=== PATIENT | female | born 1985 | race Two or more races ===

== ENCOUNTER 2016-04-19 22:28 | Emergency (ER) | payer OTHER ==
[2016-04-19 22:35] VITALS: BP 122/85; PULSE 98; TEMP 97.9; BMI 30.2
[2016-04-19] MEDS ORDERED: SODIUM CHLORIDE 1,000 ML IV ONE (22:40)
[2016-04-19] MEDS ORDERED: morphine CARPU-JECT 2 MG/1 ML DISP.SYRIN IVPUSH ONE (22:40)
[2016-04-19] MEDS ORDERED: morphine CARPU-JECT 10 MG/1 ML DISP.SYRIN ONE (22:46)
[2016-04-19] MEDS ORDERED: HYOSCYAMINE SULFATE 0.125 MG *ODT PO ONE (22:58)
--- NOTE | 2016-04-19 22:58 | PDOC ---
[id number] 4d ABD PAIN Time Seen by Provider: 04/19/16 22:37 History Source: Patient Exam Limitations: No Limitations - History of Present Illness Initial Comments: 04/19/16 22:58 This is a 30-year-old female who comes in complaining of acute onset of crampy lower abdominal pain post eating a chipotle's. Patient said post onset of the pain she had diarrhea and multiple episodes of vomiting and comes in complaining of severe lower crampy abdominal pain. Patient denies any fevers or chills. Patient denies history of similar pain in the past. Patient said prior to onset of the pain that she also developed a sensation of swelling in her affect. Patient said it wasn't her throat sensation closing but felt like the glands in her neck or enlarged. Patient denied any chest pain, shortness of breath or wheezing. Patient has a history significant for type 2 diabetes and obesity. PAST MEDICAL HISTORY: As per history of present illness PAST SURGICAL HISTORY: no significant history FAMILY HISTORY: no pertinant history SOCIAL HISTORY: Pt lives with family and is employed. MEDICATIONS: reviewed ALLERGIES: As per nursing notes Review of Systems General: No fevers or chills, no weakness, no weight loss HEENT: No change in vision. No sore throat,. No ear pain CardioVascular: No chest pain or shortness of breath Respiratory:No cough, or wheezing. Gastrointestinal: + nausea, + vomitting, +diarrhea no constipation, No rectal bleeding Genitourinary: No dysuria, hematuria, or frequency Musculoskeletal: No joint or muscle pain or swelling Neurologic: No headache, vertigo, dizziness or loss of consciousness Psychiatric: nor depression Skin: No rashes or easy bruising Endocrine: no increased thirst or abnormal weight change Allergic: no skin or latex allergy All other systems reviewed and normal Exam: General: Well-nourished well-developed individual, no acute distress HEENT: Throat: Normal, tonsils normal, no erythema or exudate Neck: Supple, no meningeal signs, no lymphadenopathy Eyes::Pupils equal reactive and round, extraocular motion intact Chest: Nontender to palpation Cardiac: S1-S2 normal, regular rate and rhythm, no murmurs rubs or gallops Respiratory: Lungs clear to auscultation bilateral Abdomen: Soft, nondistended, normal bowel sounds, mildly tender to palpation lower abdomen with increased tenderness suprapubic no guarding or rebound Pelvic: There is a small amount of dark brownish discharge. There is no cervical motion tenderness or adnexal tenderness there is no palpable adnexal masses. Extremities: Warm, dry, no cyanosis, clubbing, or edema Skin: No rashes Neuro: Alert and oriented x3, nonfocal exam, grossly intact, normal gait Psych: Normal mood and affect 12MN Reexamination: Patient's abdominal pain is completely resolved. Patient is tolerating by mouth's and feels much better and is now well hydrated. On reexam of the abdomen the abdomen is soft there is normal bowel sounds and there is no tenderness on palpation of the lower abdomen. Patient's does have a slight elevated white count but there is no left shift. Discussed with patient the importance of following up with her OB doctor and getting a pelvic exam. Patient given vomiting discharge instructions and a prescription for Zofran was sent to her pharmacy. 04/20/16 00:01 Past History - Past Medical History Allergies/Adverse Reactions: Allergies Allergy/AdvReac Type Severity Reaction Status Date / Time No Known Drug Allergies Allergy Verified 04/19/16 22:29 Home Medications: Ambulatory Orders Metformin HCl [Glucophage] 1,000 mg PO DAILY 04/19/16 Ondansetron [Zofran Odt -] 4 mg SL TID #12 od.tablet 04/19/16 Other medical history: HORMONE IMBALANCE - Psycho/Social/Smoking Cessation Hx Anxiety: No Suicidal Ideation: No Smoking History: Never smoked *Physical Exam - Vital Signs Last Vital Signs Temp Pulse Resp BP Pulse Ox 97.9 F 98 H 20 122/85 100 04/19/16 22:30 04/19/16 22:30 04/19/16 22:30 04/19/16 22:30 04/19/16 22:30 ED Treatment Course - LABORATORY CBC & Chemistry Diagram: 04/19/16 22:53 04/19/16 22:53 *DC/Admit/Observation/Transfer Diagnosis at time of Disposition: Vomiting Qualifiers: Vomiting type: unspecified Vomiting Intractability: non-intractable Nausea presence: with nausea Qualified Code(s): R11.2 - Nausea with vomiting, unspecified Abdominal pain Qualifiers: Abdominal location: unspecified location Qualified Code(s): R10.9 - Unspecified abdominal pain - Discharge Dispostion Disposition: HOME Condition at time of disposition: Stable - Prescriptions Prescriptions: Ondansetron [Zofran Odt -] 4 mg SL TID #12 od.tablet - Referrals Referrals: Ninfa Redman [Primary Care Provider] -
[2016-04-19 23:02] LABS: BASOPHIL 0.5 % (0-2.0); EOSINOPHIL 1.9 % (0-4.5); MCHC 32.9 g/dl (32.0-36.0); MEAN CELL VOLUME 75.9 fl (80-96); MEAN PLT VOLUME 7.6 fl (7.5-11.1); NEUTROPHILS 51.9 % (42.8-82.8); PLATELET COUNT 441 K/MM3 (134-434); RDW 13.5 % (11.6-15.6); WHITE BLOOD COUNT 12.9 K/mm3 (4.0-10.0)
[2016-04-19] MEDS ORDERED: HYOSCYAMINE SULFATE 0.125 MG *ODT ONE (23:02)
[2016-04-19 23:19] LABS: ALBUMIN 4.1 g/dl (3.5-5.0); ALK PHOS 42 U/L (32-92); ANION GAP 8 (8-16); BILIRUBIN,TOTAL 0.2 mg/dl (0.2-1.0); CALCIUM 9.1 mg/dl (8.4-10.2); CO2 26 mmol/L (22-28); CREATININE 0.5 mg/dl (0.6-1.3); GLUCOSE,RANDOM 123 mg/dl (74-106); SGOT/AST 19 U/L (10-42); SGPT/ALT 25 U/L (10-40); TOT PROT 7.1 g/dl (6.4-8.3)
[2016-04-19 23:47] LABS: PH,URINE 5.5 (4.5-8); URINE APPEARANCE Clear; URINE BILIRUBIN Negative (NEGATIVE); URINE GLUCOSE (UA) Negative (NEGATIVE); URINE KETONE Negative (NEGATIVE); URINE LEUK ESTERASE Negative (NEGATIVE); URINE NITRITE Negative (NEGATIVE); URINE PROTEIN Negative (NEGATIVE); URINE UROBILINOGEN 0.2 E.U/dl (0.2-1.0)
[2016-04-19 23:50] LABS: URINE BLOOD 2+ (NEGATIVE); URINE COLOR YELLOW
[2016-04-19 23:53] LABS: URINE BACTERIA FEW /hpf (NEGATIVE); URINE RBC 15-20 /hpf (0-3); URINE WBC 0-2 (3-5)
== END 2016-04-20 00:11 | disposition home or self-care (01) ==
LOC: FER 22:28
PROC: 3E033NZ Introduction of Analgesics, Hypnotics, Sedatives into Peripheral Vein, Percutaneous Approach (ICD-10-PCS; principal; 2016-04-19)
PROC: 3E0337Z Introduction of Electrolytic and Water Balance Substance into Peripheral Vein, Percutaneous Approach (ICD-10-PCS; 2016-04-19)
DX: R11.2 Nausea with vomiting, unspecified (principal); R10.9 Unspecified abdominal pain
CPT/HCPCS: 36415; 80053; 81003; 81015; 83690; 84703; 85025; 99283-25